=== PATIENT | female | born 1990 | race Two or more races ===

== ENCOUNTER 2017-06-14 15:42 | Outpatient (CLI) | END 2017-06-14 17:40 | disposition left against medical advice (07) ==

== ENCOUNTER 2017-06-17 00:25 | Outpatient (CLI) | END 2017-06-17 05:05 | disposition home or self-care (01) ==

== ENCOUNTER 2017-06-27 17:38 | Outpatient (CLI) | END 2017-06-27 21:50 | disposition home or self-care (01) ==